=== PATIENT | male | born 1970 | race Caucasian/White ===

== ENCOUNTER 2020-04-14 16:11 | Outpatient (CLI) | payer OTHER, SELFPAY ==
[2020-04-15 14:04] LABS: SARS-CoV-2 RNA PCR Negative
== END 2020-04-14 16:12 | disposition home or self-care (01) ==
LOC: CHSLAB 16:17
PROVIDERS: PCP Family Medicine; Visit Provider Family Medicine
DX: Z20.828 Contact with and (suspected) exposure to other viral communicable diseases (principal)
CPT/HCPCS: 87635; C9803; U0003

== ENCOUNTER 2021-02-09 11:37 | Outpatient (CLI) | payer BC, SELFPAY ==
[2021-02-09 13:27] LABS: SARS-CoV-2 RNA PCR Negative (Negative)
== END 2021-02-09 11:38 | disposition home or self-care (01) ==
LOC: CHSLAB 11:42
PROVIDERS: PCP Family Medicine; Visit Provider Family Medicine
DX: J00 Acute nasopharyngitis [common cold] (principal); Z20.822 Contact with and (suspected) exposure to COVID-19
CPT/HCPCS: C9803; U0003; U0005